=== PATIENT | male | born 1960 | race Caucasian/White ===

== ENCOUNTER 2023-09-16 11:38 | Outpatient (CLI) | payer BC | END 2023-09-16 23:59 | disposition EMS.NT | LOC: EMS 11:38 | DX: S99.911A Unspecified injury of right ankle, initial encounter (principal); X58.XXXA Exposure to other specified factors, initial encounter; Y93.79 Activity, other specified sports and athletics; Y92.39 Other specified sports and athletic area as the place of occurrence of the external cause ==

== ENCOUNTER 2023-09-16 12:39 | Emergency (ER) | payer BC ==
--- NOTE | 2023-09-16 13:29 | XRAY Report ---
PROCEDURE: Ankle 3+V RT INDICATIONS: achilles pain TECHNIQUE: 3 views of the ankle were acquired. COMPARISON: None. FINDINGS: Bones: No fractures or dislocations. Ankle mortise is normally aligned. No suspicious bony lesions . Soft tissues: No tibiotalar joint effusion. Thickening along the Achilles may indicate possible part ial tear. IMPRESSION: No acute bony abnormality. Question partial tear involving the Achilles tendon. Comment: If desired, consider confirmation with MRI. Reviewed by: Orion Castañeda MD on 09/16/2023 1:27 PM PDT Approved by: Orion Castañeda MD on 09/16/2023 1:27 PM PDT Station ID: [id number]
--- NOTE | 2023-09-16 13:31 | ED Physician Documentation ---
History of Present Illness - Stated complaint Stated Complaint: RT ANKLE INJ - Chief complaint Chief Complaint: Trauma Ext - Additonal information Additional information: 62-year-old male with no pertinent past medical history presents emergency department for concerns of right Achilles tear. Patient says that he was playing pickle ball for his first time he was out of the court for about a total of 3 minutes after he took a step he felt like he was stepping on a ball and then ultimately fell because he felt severe weakness under his right foot and ankle. He has no recent antibiotic use within the last year including fluoroquinolones no thinners did not hit his head neurologically intact CMS intact weakness with flexion extension of the right ankle. PD PAST MEDICAL HISTORY - Past Surgical History Past Surgical History: Yes Ortho: Arthroscopic surgery, Other - Present Medications Home Medications: Ambulatory Orders Medication Instructions Recorded Confirmed No Known Home Medications 09/16/23 09/16/23 - Allergies Allergies/Adverse Reactions: Allergies Allergy/AdvReac Type Severity Reaction Status Date / Time acetaminophen AdvReac Dizziness Verified 09/16/23 12:56 - Social History Does the pt smoke?: No Smoking Status: Never smoker Does the pt drink ETOH?: Yes Does the pt have substance abuse?: No - Immunizations Immunizations are current?: Yes - POLST Patient has POLST: No PD ED PE NORMAL - Vitals Vital signs reviewed: Yes - General General: Alert and oriented X 3, No acute distress, Well developed/nourished - Derm Derm: Normal color, Warm and dry, No rash - Extremities Extremities: Other (right lower extremity: Left achilles feels soft with bulging up left calf with palpation weakness with flexion extension. tenderness with palpation to left calf) - Psych Psych: Normal mood, Normal affect Results - Vitals Vitals: Vital Signs - 24 hr 09/16/23 09/16/23 09/16/23 12:56 14:28 14:38 Temperature 37 C 36.4 C L Heart Rate 81 72 Respiratory 19 18 17 Rate Blood Pressure 194/119 H 206/103 H O2 Saturation 99 98 Oxygen O2 Source Room air - Rads (name of study) right ankle x-ray Relevant Findings:: Final report received, EMP independent interpretation of test, Other (No acute bony abnormality, possible partial tear involving the Achilles tendon) Procedures - Splint (location) - Minor left lower extremity Splint applied by: Nurse, Tech Type of splint: Short leg, Posterior, Stirrup Other: Patient tolerated well, No complications, Neurovascular intact, Crutches provided PD Medical Decision Making - ED course ED course: 62-year-old male presents emergency department for right calf bulge concerns for Achilles tear. X-rays were complete which did reveal no bony abnormalities or findings but it did show possible partial tear involving the Achilles tendon. Upon my physical exam patient is tender along the right calf where there is a bulge noticed which was most likely due to the Achilles his left Achilles is quite soft in comparison to his right confirming that I do believe that patient is experiencing a partial if not full Achilles tear. Patient is placed in a posterior short leg with stirrups splint in slight flexion. He was also given c rutches and told to not ambulate on his right lower extremity. Contact information for [facility] given for outpatient follow-up he is to call them first thing tomorrow morning to get in with them as soon as possible for discussion of further management and possible surgery. He was offered pain medication here in the emergency department kindly declined saying that he is having minimal to no pain and the Tylenol ibuprofen usually works well for him does not think he needs any medications such as opioids. Return precautions given all questions answered patient is safe for discharge at this time. Departure - Departure Disposition: 01 Home, Self Care Clinical Impression: Achilles rupture, left Instructions: Rupture Achilles Tendon, ED Tendon Rupture Achilles Follow-Up: [facility] [Provider Group] Comments: They have addressed this with your care. I do believe that you have an Achilles tendon tear please follow-up with [facility] for further evaluation and do not ambulate on your left foot. If you are having any difficulty with the crutches you can also order a knee scooter on [employer] to help with any ambulation. Please alternate between Tylenol ibuprofen for any pain and discomfort. Forms: PCP List Discharge Date/Time: 09/16/23 15:39
[2023-09-16 15:04] VITALS: BP 206/103; O2SAT 98
== END 2023-09-16 15:39 | disposition home or self-care (01) ==
LOC: ED 12:39
DX: S86.012A Strain of left Achilles tendon, initial encounter (principal); W18.39XA Other fall on same level, initial encounter; Y93.69 Activity, other involving other sports and athletics played as a team or group
CPT/HCPCS: 29515; 99284